=== PATIENT | female | born 1980 | race Two or more races ===

== ENCOUNTER 2018-10-09 14:34 | Emergency (ER) | payer MEDICAID ==
[2018-10-09 15:13] LABS: CULTURE INDICATED? NO; HCG UR SG 1.027 (1.003-1.030); MICROSCOPIC AUTO
[2018-10-09 15:16] LABS: BASOPHILS # (AUTO) 0.03 x10^3/uL (0-0.1); BASOPHILS % (AUTO) 0 % (0-1); EOSINOPHILS # (AUTO) 0.01 x10^3/uL (0-0.4); EOSINOPHILS % (AUTO) 0 % (1-7); LYMPHOCYTES # (AUTO) 2.35 x10^3/uL (1-3.4); LYMPHOCYTES % (AUTO) 30 % (22-44); MD NO; MEAN CORPUSCULAR HEMOGLOBIN 24.1 pg (27.0-34.8); MEAN CORPUSCULAR HGB CONC 31.3 g/dL (32.4-35.8); MEAN CORPUSCULAR VOLUME 76.9 fL (80-100); MEAN PLATELET VOLUME 10.4 fL (7.4-10.4); MONOCYTES # (AUTO) 0.49 x10^3/uL (0.2-0.8); MONOCYTES % (AUTO) 6 % (2-9); NEUTROPHILS # (AUTO) 5.01 x10^3/uL (1.8-6.8); NEUTROPHILS % (AUTO) 64 % (42-75); PLATELET COUNT 287 x10^3/uL (130-400); RED BLOOD COUNT 4.22 x10^6/uL (3.82-5.3); RED CELL DISTRIBUTION WIDTH 15.9 % (9.6-15.2)
[2018-10-09 15:53] LABS: ALBUMIN 3.5 g/dL (3.4-5.0); ANION GAP 9 mmol/L (5-15); CALCIUM 8.9 mg/dL (8.5-10.1); CHLORIDE 110 mmol/L (98-107); CREATININE 0.82 mg/dL (0.55-1.02)
[2018-10-09 16:03] LABS: ALANINE AMINOTRANSFERASE 20 U/L (12-78); ALKALINE PHOSPHATASE 119 U/L (45-117); BILIRUBIN,TOTAL 0.2 mg/dL (0.2-1.0); TOTAL PROTEIN 7.5 g/dL (6.4-8.2)
--- NOTE | 2018-10-09 17:08 | NUR ---
TO ROOM FROM LOBBY. NAD.
[2018-10-09] MEDS ORDERED: LIDOCAINE 1%, 10ML INFIL ONE (17:30)
[2018-10-09] MEDS ORDERED: LIDOCAINE-MPF 1%, 5ML ONE (17:32)
== END 2018-10-09 18:24 | disposition home or self-care (01) ==
LOC: MERGE 18:05 → ED 18:05
DX: N75.0 Cyst of Bartholin's gland (principal); K59.00 Constipation, unspecified; G43.909 Migraine, unspecified, not intractable, without status migrainosus
CPT/HCPCS: 36415; 56420; 74018; 80053; 81001; 81025; 83690; 85025; 99283; 99284

== ENCOUNTER 2020-01-09 21:50 | Emergency (ER) | payer MEDICAID, OTHER ==
[~2020-01-09] VITALS: Ht 170.2 cm; Wt 108.6 kg
[2020-01-09] MEDS ORDERED: LIDOCAINE-MPF 2% ,5ML ONE (22:19)
[2020-01-09] MEDS ORDERED: LIDOCAINE 2%, 20ML INFIL ONE (22:30)
[2020-01-09 23:00] VITALS: BP 116/54
== END 2020-01-09 23:05 | disposition home or self-care (01) ==
LOC: ED 22:20
DX: N75.1 Abscess of Bartholin's gland (principal); R10.2 Pelvic and perineal pain; Z98.51 Tubal ligation status
CPT/HCPCS: 56420; 99284

== ENCOUNTER 2020-03-30 21:43 | Emergency (ER) | payer MEDICAID ==
[~2020-03-30] VITALS: Ht 170.2 cm; Wt 109.0 kg
--- NOTE | 2020-03-30 22:35 | NUR ---
REPORT TO FABIANO GONZALEZ AND FABIANO CHIANG FOR BREAK.
--- NOTE | 2020-03-30 22:55 | NUR ---
BREAK RN: PT SITTING UPRIGHT ON GURNEY WATCHING TV. PT C/O DAWKINS AND REQUESTING "SOMETHING FOR PAIN", ERP NOTIFIED. NAD, VSS. PT DENIES ANY ADDITIONAL NEEDS AT THIS TIME. CALL LIGHT AND PERSONAL BELONGINS WITHIN REACH.
[2020-03-30] MEDS ORDERED: IBUPROFEN 600 MG TABLET ONE (23:04)
[2020-03-30] MEDS ORDERED: IBUPROFEN 600 MG TABLET PO ONE (23:30)
[2020-03-30] MEDS ORDERED: IBUPROFEN 200 MG TABLET PO ONE (23:30)
[2020-03-30 23:41] VITALS: BP 114/60
== END 2020-03-31 00:40 | disposition home or self-care (01) ==
LOC: ED 22:48
DX: U07.1 COVID-19 (principal); J06.9 Acute upper respiratory infection, unspecified; R06.00 Dyspnea, unspecified; G43.909 Migraine, unspecified, not intractable, without status migrainosus
CPT/HCPCS: 71045; 87635; 99284

== ENCOUNTER 2020-05-11 14:37 | Emergency (ER) | payer MEDICAID ==
[~2020-05-11] VITALS: Ht 172.7 cm; Wt 111.0 kg
[2020-05-11 15:28] LABS: BASOPHILS % (AUTO) 1 % (0-1); EOSINOPHILS % (AUTO) 1 % (1-7); LYMPHOCYTES % (AUTO) 36 % (22-44); MEAN CORPUSCULAR HEMOGLOBIN 23.9 pg (27.0-34.8); MEAN PLATELET VOLUME 9.3 fL (7.4-10.4); MONOCYTES % (AUTO) 7 % (2-9); NEUTROPHILS % (AUTO) 56 % (42-75); PLATELET COUNT 293 x10^3/uL (130-400); RED BLOOD COUNT 4.49 x10^6/uL (3.82-5.3); RED CELL DISTRIBUTION WIDTH 18.4 % (9.6-15.2)
[2020-05-11] MEDS ORDERED: ASPIRIN 81 MG TABLET CHEW ONE (15:28)
[2020-05-11] MEDS ORDERED: ASPIRIN 81 MG TABLET CHEW PO ONE (15:30)
[2020-05-11 15:32] LABS: MD NO
[2020-05-11 15:41] LABS: ALANINE AMINOTRANSFERASE 37 U/L (12-78); ALBUMIN 3.8 g/dL (3.4-5.0); ANION GAP 7 mmol/L (5-15); CALCIUM 9.2 mg/dL (8.5-10.1); CHLORIDE 110 mmol/L (98-107); CREATININE 0.88 mg/dL (0.55-1.02)
[2020-05-11 15:45] LABS: ALKALINE PHOSPHATASE 111 U/L (45-117); BILIRUBIN,TOTAL 0.2 mg/dL (0.2-1.0); TOTAL PROTEIN 7.9 g/dL (6.4-8.2); TROPONIN I < 0.015 ng/mL (0.000-0.045)
[2020-05-11 16:33] VITALS: BP 110/54
== END 2020-05-11 16:44 | disposition home or self-care (01) ==
LOC: ED 16:30
DX: R07.89 Other chest pain (principal)
CPT/HCPCS: 36415; 71045; 80053; 84484; 85025; 93005; 99285